=== PATIENT | female | born 1935 | race Caucasian/White ===

== ENCOUNTER 2018-03-19 09:47 | Emergency (ER) | payer MEDICARE, OTHER ==
[~2018-03-19] VITALS: Ht 157.5 cm; Wt 106.5 kg
[~2018-03-19 09:47] MED LIST: CHOL2000 PO; DULO60CA7 PO; GABA600T2 PO; GLIM1TAB2 PO; HYDR-3245 PO; HYDR25TA6 PO; IRBE300T16 PO; METF850T10 PO; METH500T97 PO; PANT40TA5 PO; iron PO
[2018-03-19 10:07] VITALS: BP 178/86
[2018-03-19] MEDS ORDERED: METO25TA35 PO (10:37)
[2018-03-19] MEDS ORDERED: LINA5TAB PO (10:43)
[2018-03-19] MEDS ORDERED: TIOT4MIS3 INH (10:43)
[2018-03-19] MEDS ORDERED: GABA800T2 PO (10:43)
[2018-03-19] MEDS ORDERED: DULO20CA45 PO (10:43)
[2018-03-19] MEDS ORDERED: PRAM0.125 PO (10:43)
== END 2018-03-19 11:05 | disposition home or self-care (01) ==
LOC: ED 10:50
DX: L01.01 Non-bullous impetigo (principal); L23.5 Allergic contact dermatitis due to other chemical products; I10 Essential (primary) hypertension; E11.9 Type 2 diabetes mellitus without complications
CPT/HCPCS: 99283

== ENCOUNTER 2020-04-12 14:56 | Inpatient (IN) | payer MEDICARE ==
[~2020-04-12] VITALS: Ht 160 cm; Wt 98.2 kg
[~2020-04-12 14:56] MED LIST changes: +DULO20CA45 PO; -GABA600T2 PO; +GABA600T7 PO; +GABA800T5 PO; -GLIM1TAB2 PO; +GLIM1TAB7 PO; -HYDR-3245 PO; +HYDR1TAB53 PO; -IRBE300T16 PO; +IRBE300T8 PO; +LINA5TAB PO; +METO25TA35 PO; -PANT40TA5 PO; +PANT40TA6 PO; +PRAM0.125 PO; +TIOT4MIS3 INH
[2020-04-12] MEDS ORDERED: SODIUM CHLORIDE FLUSH 10ML SYR IVF ONE (15:30)
[2020-04-12] MEDS ORDERED: ALBUTEROL SULFATE 2.5 MG/3 ML NPPB ONE (15:30)
[2020-04-12 16:10] LABS: BASOPHILS % (AUTO) 1 % (0-1); EOSINOPHILS % (AUTO) 3 % (1-7); LYMPHOCYTES % (AUTO) 13 % (22-44); MEAN CORPUSCULAR HEMOGLOBIN 28.4 pg (27.0-34.8); MEAN CORPUSCULAR HGB CONC 32.6 g/dL (32.4-35.8); MEAN PLATELET VOLUME 7.4 fL (7.4-10.4); MONOCYTES % (AUTO) 9 % (2-9); NEUTROPHILS % (AUTO) 75 % (42-75); PLATELET COUNT 294 x10^3/uL (130-400); RED BLOOD COUNT 4.34 x10^6/uL (3.82-5.3); RED CELL DISTRIBUTION WIDTH 14.9 % (9.6-15.2)
[2020-04-12 16:16] LABS: MD NO
[2020-04-12 16:18] LABS: ALANINE AMINOTRANSFERASE 18 U/L (12-78); ALBUMIN 3.1 g/dL (3.4-5.0); ANION GAP 8 mmol/L (5-15); CALCIUM 9.4 mg/dL (8.5-10.1); CHLORIDE 97 mmol/L (98-107); CREATININE 1.71 mg/dL (0.55-1.02)
[2020-04-12 16:22] LABS: ALKALINE PHOSPHATASE 81 U/L (45-117); BILIRUBIN,TOTAL 1.1 mg/dL (0.2-1.0); TROPONIN I < 0.015 ng/mL (0.000-0.045)
[2020-04-12] MEDS ORDERED: CEFTRIAXONE PMX 1GM/50ML 50 ML ONE (17:35)
[2020-04-12] MEDS ORDERED: MELATONIN 5 MG TABLET PO PRN (18:00)
[2020-04-12] MEDS ORDERED: HEPARIN 5,000 UNITS/ML, 1ML SQ SCH (18:00)
[2020-04-12] MEDS ORDERED: DEXAMETHASONE 4 MG/ML, 1ML IVPush ONE (18:00)
[2020-04-12] MEDS ORDERED: CEFTRIAXONE PMX 1GM/50ML 50 ML IVPB ONE (18:00)
[2020-04-12] MEDS ORDERED: AZITHROMYCIN 500 MG in SODIUM CHLORIDE 0.9% 250 ML IV SCH (18:00)
[2020-04-12] MEDS ORDERED: ONDANSETRON ODT 4 MG PO PRN (18:00)
[2020-04-12] MEDS ORDERED: TEMPLATE NON-FORMULARY MED. (Gabapentin** 800 MG) PO SCH (18:00)
[2020-04-12] MEDS ORDERED: CEFTRIAXONE PMX 1GM/50ML 50 ML IV SCH (18:00)
[2020-04-12] MEDS ORDERED: FUROSEMIDE 40 MG/4 ML IV ONE (18:00)
[2020-04-12] MEDS ORDERED: BISACODYL 10 MG SUPP PR PRN (18:00)
[2020-04-12] MEDS ORDERED: POLYETHYLENE GLYCOL 17 GM PACKET PO PRN (18:00)
[2020-04-12] MEDS ORDERED: DEXAMETHASONE 4 MG/ML, 5ML ONE (18:03)
[2020-04-12] MEDS ORDERED: HEPARIN 5,000 UNITS/ML, 1ML ONE ×2 (18:03→21:49)
[2020-04-12] MEDS ORDERED: FUROSEMIDE 20 MG/2 ML ONE (18:04)
[2020-04-12] MEDS ORDERED: ALBUTEROL SULFATE 2.5 MG/3 ML ONE (18:04)
[2020-04-12] MEDS ORDERED: AZITHROMYCIN 500 MG in SODIUM CHLORIDE 0.9% 250 ML IV ONE (18:30)
[2020-04-12 18:41] LABS: D-DIMER 5.86 ug/mlFEU (0.00-0.52); INTERNATIONAL NORMALIZED RATIO 1.03 (0.93-1.1); PROTHROMBIN TIME 10.9 Seconds (9.6-11.5)
--- NOTE | 2020-04-12 19:00 | NUR ---
SANDWICH AND CHIPS PROVIDED. NO OTHE NEEDS AT THIS TIME.
[2020-04-12] MEDS ORDERED: ASCORBIC ACID 500 MG TABLET ONE (19:58)
[2020-04-12] MEDS ORDERED: GABAPENTIN 400 MG CAPSULE ONE (19:59)
[2020-04-12] MEDS: ASCORBIC ACID 500 MG TABLET PO SCH (20:02)
--- NOTE | 2020-04-12 20:16 | NUR ---
PT SBA TO BSC. PT VOIDED AND HAD BM. PT BTB. PT VERY SOB WITH EXERTION. [id number] [phone]
[2020-04-12] MEDS: PRAMIPEXOLE 0.125MG TABLET PO SCH (20:17)
--- NOTE | 2020-04-12 20:47 | NUR ---
CONTACTED GI WALKER TO UPDATE. PT PULSE IN THE 120'S-130'S. 02 SAT 93% ON 4L. ELEVATED D-DIMER. ORDERS PLACED.
--- NOTE | 2020-04-12 20:55 | NUR ---
LEFT MESSAGE FOR GI WALKER. EKG NOW SHOWS AFIB 120'S. PT ASYMPTOMATIC.
[2020-04-12] MEDS ORDERED: DULOXETINE 20 MG CAPSULE.DR PO SCH (21:00)
[2020-04-12] MEDS ORDERED: DILTIAZEM 5 MG/ML, 5ML IV ONE (21:00)
[2020-04-12] MEDS ORDERED: DILTIAZEM 5 MG/ML, 5ML ONE ×2 (21:00→21:03)
[2020-04-12] MEDS ORDERED: HEPARIN 25,000 UNITS/250ML PMX 250 ML ONE (21:00)
--- NOTE | 2020-04-12 21:03 | NUR ---
[employer]: CALL RECEIVED FROM KIRAN WALKER ([facility]). NUC MED VQ SCAN ORDER CHANGED TO STAT AND RAD CALLED TO CALL TECH IN. DILT WAS ALREADY ORDERED BY DR. DAILY. Addendum: 04/12/20 at 2107 by MARCOS DILTIAZEM 10MG IVP ONCE VERBAL ORDER BY KIRAN WALKER(HAD ALREADY BEEN ORDERED AND GIVEN)
--- NOTE | 2020-04-12 21:03 | NUR ---
Radiology called and they state they will call Kameron the [place] tech in for us.
[2020-04-12] MEDS: DILTIAZEM 125 MG in SODIUM CHLORIDE 0.9% 100 ML IV SCH (21:06)
[2020-04-12] MEDS ORDERED: HEPARIN 5,000 UNITS/ML, 1ML IV PRN (21:30)
[2020-04-12] MEDS ORDERED: HEPARIN 5,000 UNITS/ML, 1ML IV ONE (21:30)
[2020-04-12] MEDS: HEPARIN 25,000 UNITS/250ML PMX 250 ML IV PRN (21:43)
--- NOTE | 2020-04-12 21:45 | NUR ---
PT STATES HER IV CAME OUT WHEN SHE TRIED TO ROLL OVER. IV ABX ZITHROMAX POOLED ON FLOOR NEXT TO BED. PT ASSISTED TO CHAIR AND LINENS CHANGED AND BED CLEANED. PT PLACED IN CLEAN GOWN AND ASSISTED TO WHEELCHAIR. PT TO CT WITH TECH AT THIS TIME FOR VQ SCAN.
--- NOTE | 2020-04-12 22:25 | NUR ---
LATE NOTE: THIS RN STARTED DILTIAZEM DRIP AT 2210 @ 10ML/HR. PREVIOUS RN DID NOT START DILTIAZEM DRIP.
[2020-04-12 22:40] VITALS: BP 128/75
[2020-04-12] MEDS: GABAPENTIN 400 MG CAPSULE PO SCH (22:58)
[2020-04-12] MEDS ORDERED: DULO30CA2 PO (23:22)
[2020-04-12] MEDS ORDERED: METO25TA2 PO (23:22)
[2020-04-12] MEDS ORDERED: ALBU2.5V NEB (23:22)
[2020-04-12] MEDS ORDERED: ERGO500018 PO (23:22)
[2020-04-12] MEDS ORDERED: DONE10TA7 PO (23:22)
[2020-04-12] MEDS ORDERED: AMLO-210 PO (23:22)
[2020-04-12] MEDS ORDERED: TORS10TA4 PO (23:22)
[2020-04-12] MEDS ORDERED: FERR-51 PO (23:22)
[2020-04-12] MEDS ORDERED: Allegra PO (23:40)
[2020-04-13] MEDS: DONEPEZIL 10 MG TABLET PO SCH ×2 (00:53→20:57)
[2020-04-13 02:07] VITALS: BP 105/62
[2020-04-13 05:38] LABS: BASOPHILS % (AUTO) 0 % (0-1); EOSINOPHILS % (AUTO) 0 % (1-7); LYMPHOCYTES % (AUTO) 10 % (22-44); MEAN CORPUSCULAR HEMOGLOBIN 28.8 pg (27.0-34.8); MEAN PLATELET VOLUME 7.4 fL (7.4-10.4); MONOCYTES % (AUTO) 1 % (2-9); NEUTROPHILS % (AUTO) 89 % (42-75); PLATELET COUNT 272 x10^3/uL (130-400); RED BLOOD COUNT 3.99 x10^6/uL (3.82-5.3); RED CELL DISTRIBUTION WIDTH 14.8 % (9.6-15.2)
[2020-04-13 05:46] LABS: ANION GAP 8 mmol/L (5-15); CALCIUM 8.9 mg/dL (8.5-10.1); CHLORIDE 99 mmol/L (98-107)
[2020-04-13 06:02] LABS: MD SCAN
[2020-04-13 07:18] VITALS: BP 120/75
[2020-04-13] MEDS: GABAPENTIN 400 MG CAPSULE PO SCH ×3 (08:20→20:58)
[2020-04-13] MEDS: SENNA/DOCUSATE TABLET PO SCH (08:20)
[2020-04-13] MEDS: PANTOPRAZOLE 40MG TABLET PO SCH (08:20)
[2020-04-13] MEDS: LINAGLIPTIN 5 MG TAB PO SCH (08:20)
[2020-04-13] MEDS: ASCORBIC ACID 500 MG TABLET PO SCH ×2 (08:20→20:58)
[2020-04-13] MEDS: CHOLECALCIFEROL 5,000u TAB PO SCH (08:20)
[2020-04-13] MEDS: DOXYCYCLINE 100MG TABLET PO SCH ×2 (08:20→20:58)
[2020-04-13] MEDS: CEFTRIAXONE PMX 2GM/50ML 50 ML IVPB SCH (08:21)
[2020-04-13] MEDS: DULOXETINE 30 MG CAPSULE.DR PO SCH (08:21)
[2020-04-13] MEDS: METOPROLOL SUCCINATE 25 MG TAB.ER.24H PO SCH (08:21)
[2020-04-13] MEDS ORDERED: IRBESARTAN 300 MG TABLET PO SCH (09:00)
[2020-04-13] MEDS ORDERED: DEXAMETHASONE 4 MG/ML, 1ML IVPush SCH (09:00)
[2020-04-13] MEDS ORDERED: METOPROLOL TARTRATE 25 MG TAB PO SCH (09:00)
[2020-04-13] MEDS ORDERED: AMLODIPINE 5 MG TABLET PO SCH (09:00)
[2020-04-13] MEDS ORDERED: REMDESIVIR 100 MG in SODIUM CHLORIDE 0.9% 250 ML IVPB ONE (11:00)
[2020-04-13] MEDS: ALBUTEROL HFA 90 MCG/SPRAY INH SCH ×4 (12:16→20:59)
[2020-04-13] MEDS: TIOTROPIUM BROMIDE 18 MCG/INH INH SCH (12:16)
[2020-04-13] MEDS: ZINC SULFATE 220 MG CAPSULE PO SCH (12:17)
[2020-04-13] MEDS: INSULIN LISPRO 100 UNITS/ML, PEN SQ-INSULIN SCH ×3 (12:25→20:57)
[2020-04-13] MEDS: DILTIAZEM 125 MG in SODIUM CHLORIDE 0.9% 100 ML IV SCH (12:39)
[2020-04-13 14:23] VITALS: BP 119/62
[2020-04-13 20:22] VITALS: BP 138/68
[2020-04-13] MEDS ORDERED: PRAMIPEXOLE 0.25MG TABLET ONE (20:53)
[2020-04-13] MEDS: HEPARIN 25,000 UNITS/250ML PMX 250 ML IV PRN (20:56)
[2020-04-13] MEDS: PRAMIPEXOLE 0.125MG TABLET PO SCH (20:57)
[2020-04-13] MEDS: GUAIFENESIN/DM 200-20MG, 10ML UDC PO PRN (20:58)
[2020-04-13] MEDS: DEXAMETHASONE 4 MG/ML, 1ML IVPush SCH (20:58)
[2020-04-14 00:20] VITALS: BP 127/71
[2020-04-14] MEDS: ALBUTEROL HFA 90 MCG/SPRAY INH SCH ×6 (00:32→21:32)
[2020-04-14 07:20] VITALS: BP 111/69
[2020-04-14 08:03] LABS: BASOPHILS % (AUTO) 0 % (0-1); EOSINOPHILS % (AUTO) 0 % (1-7); LYMPHOCYTES % (AUTO) 6 % (22-44); MEAN CORPUSCULAR HEMOGLOBIN 28.3 pg (27.0-34.8); MEAN CORPUSCULAR HGB CONC 32.3 g/dL (32.4-35.8); MEAN PLATELET VOLUME 7.2 fL (7.4-10.4); MONOCYTES % (AUTO) 2 % (2-9); NEUTROPHILS % (AUTO) 92 % (42-75); PLATELET COUNT 290 x10^3/uL (130-400); RED BLOOD COUNT 3.79 x10^6/uL (3.82-5.3); RED CELL DISTRIBUTION WIDTH 14.8 % (9.6-15.2)
[2020-04-14 08:10] LABS: MD NO
[2020-04-14 08:15] LABS: ALANINE AMINOTRANSFERASE 19 U/L (12-78); ALBUMIN 2.9 g/dL (3.4-5.0); ANION GAP 12 mmol/L (5-15); CALCIUM 8.8 mg/dL (8.5-10.1); CHLORIDE 100 mmol/L (98-107); CREATININE 2.07 mg/dL (0.55-1.02)
[2020-04-14 08:17] LABS: ALKALINE PHOSPHATASE 71 U/L (45-117); BILIRUBIN,TOTAL 0.4 mg/dL (0.2-1.0)
[2020-04-14] MEDS: CHOLECALCIFEROL 5,000u TAB PO SCH (08:19)
[2020-04-14] MEDS: ACETAMINOPHEN 325 MG TABLET PO PRN (08:19)
[2020-04-14] MEDS: DULOXETINE 30 MG CAPSULE.DR PO SCH (08:19)
[2020-04-14] MEDS: GABAPENTIN 400 MG CAPSULE PO SCH ×3 (08:19→21:32)
[2020-04-14] MEDS: ASCORBIC ACID 500 MG TABLET PO SCH ×2 (08:19→21:31)
[2020-04-14] MEDS: LINAGLIPTIN 5 MG TAB PO SCH (08:19)
[2020-04-14] MEDS: METOPROLOL SUCCINATE 25 MG TAB.ER.24H PO SCH (08:19)
[2020-04-14] MEDS: DOXYCYCLINE 100MG TABLET PO SCH ×2 (08:19→21:32)
[2020-04-14] MEDS: PANTOPRAZOLE 40MG TABLET PO SCH (08:19)
[2020-04-14] MEDS: TIOTROPIUM BROMIDE 18 MCG/INH INH SCH (08:20)
[2020-04-14] MEDS: DEXAMETHASONE 4 MG/ML, 1ML IVPush SCH ×2 (08:20→21:31)
[2020-04-14] MEDS: CEFTRIAXONE PMX 2GM/50ML 50 ML IVPB SCH (08:24)
[2020-04-14] MEDS: INSULIN LISPRO 100 UNITS/ML, PEN SQ-INSULIN SCH ×4 (08:24→21:30)
[2020-04-14] MEDS: SENNA/DOCUSATE TABLET PO SCH (08:24)
[2020-04-14] MEDS ORDERED: APIX2.5T PO (10:24)
[2020-04-14] MEDS: REMDESIVIR 50 MG in SODIUM CHLORIDE 0.9% 250 ML IVPB SCH (12:55)
[2020-04-14] MEDS: ZINC SULFATE 220 MG CAPSULE PO SCH (12:55)
[2020-04-14 14:11] LABS: CLOSTRIDIUM DIFFICILE ANTIGEN NEGATIVE; CLOSTRIDIUM DIFFICILE TOXIN NEGATIVE (Negative)
[2020-04-14 14:29] VITALS: BP 128/74
[2020-04-14] MEDS: LOPERAMIDE 2 MG CAPSULE PO SCH ×3 (15:19→22:28)
[2020-04-14 16:26] LABS: MICROSCOPIC INDICATED
[2020-04-14 20:19] VITALS: BP 135/73
[2020-04-14] MEDS ORDERED: INSULIN GLARGINE 100 UNITS/ML, PEN SQ-INSULIN SCH (21:00)
[2020-04-14] MEDS: INSULIN GLARGINE 100 UNITS/ML, PEN SQ-INSULIN SCH (21:31)
[2020-04-14] MEDS: APIXABAN 2.5 MG TABLET PO SCH (21:31)
[2020-04-14] MEDS: PRAMIPEXOLE 0.125MG TABLET PO SCH (21:32)
[2020-04-14] MEDS: DONEPEZIL 10 MG TABLET PO SCH (21:32)
[2020-04-15 00:55] VITALS: BP 145/78
[2020-04-15] MEDS: LOPERAMIDE 2 MG CAPSULE PO SCH ×6 (01:42→21:47)
[2020-04-15] MEDS: ALBUTEROL HFA 90 MCG/SPRAY INH SCH ×6 (01:42→20:25)
[2020-04-15 07:46] VITALS: BP 164/82
[2020-04-15 08:16] LABS: ALBUMIN 2.9 g/dL (3.4-5.0); ANION GAP 5 mmol/L (5-15); CALCIUM 8.5 mg/dL (8.5-10.1); CHLORIDE 103 mmol/L (98-107)
[2020-04-15 08:19] LABS: ALANINE AMINOTRANSFERASE 19 U/L (12-78); ALKALINE PHOSPHATASE 67 U/L (45-117); BILIRUBIN,TOTAL 0.4 mg/dL (0.2-1.0); CREATININE 2.04 mg/dL (0.55-1.02)
[2020-04-15] MEDS: CEFTRIAXONE PMX 2GM/50ML 50 ML IVPB SCH (08:55)
[2020-04-15] MEDS: DEXAMETHASONE 4 MG/ML, 1ML IVPush SCH ×2 (08:56→20:24)
[2020-04-15] MEDS: LINAGLIPTIN 5 MG TAB PO SCH (08:56)
[2020-04-15] MEDS: INSULIN LISPRO 100 UNITS/ML, PEN SQ-INSULIN SCH ×4 (08:56→20:23)
[2020-04-15] MEDS: GABAPENTIN 400 MG CAPSULE PO SCH ×3 (08:57→20:24)
[2020-04-15] MEDS: ASCORBIC ACID 500 MG TABLET PO SCH ×2 (08:57→20:24)
[2020-04-15] MEDS: APIXABAN 2.5 MG TABLET PO SCH ×2 (08:57→20:24)
[2020-04-15] MEDS: DOXYCYCLINE 100MG TABLET PO SCH ×2 (08:57→20:24)
[2020-04-15] MEDS: DULOXETINE 30 MG CAPSULE.DR PO SCH (08:58)
[2020-04-15] MEDS: PANTOPRAZOLE 40MG TABLET PO SCH (08:58)
[2020-04-15] MEDS: METOPROLOL SUCCINATE 25 MG TAB.ER.24H PO SCH (08:58)
[2020-04-15] MEDS: SENNA/DOCUSATE TABLET PO SCH (08:59)
[2020-04-15] MEDS: CHOLECALCIFEROL 5,000u TAB PO SCH (08:59)
[2020-04-15] MEDS: TIOTROPIUM BROMIDE 18 MCG/INH INH SCH (09:01)
[2020-04-15] MEDS ORDERED: FUROSEMIDE 40 MG/4 ML IV ONE (11:00)
[2020-04-15] MEDS ORDERED: POTASSIUM CHLORIDE 20 MEQ TAB.ER.PRT PO ONE (11:00)
[2020-04-15] MEDS: ZINC SULFATE 220 MG CAPSULE PO SCH (11:20)
[2020-04-15] MEDS: REMDESIVIR 50 MG in SODIUM CHLORIDE 0.9% 250 ML IVPB SCH (11:20)
[2020-04-15 13:59] VITALS: BP 102/67
[2020-04-15 19:14] VITALS: BP 125/81
[2020-04-15] MEDS: INSULIN GLARGINE 100 UNITS/ML, PEN SQ-INSULIN SCH (20:23)
[2020-04-15] MEDS: DONEPEZIL 10 MG TABLET PO SCH (20:24)
[2020-04-15] MEDS: PRAMIPEXOLE 0.125MG TABLET PO SCH (20:24)
[2020-04-16] MEDS: LOPERAMIDE 2 MG CAPSULE PO SCH ×6 (01:33→22:14)
[2020-04-16] MEDS: ALBUTEROL HFA 90 MCG/SPRAY INH SCH ×6 (01:33→21:20)
[2020-04-16 01:34] VITALS: BP 156/81
[2020-04-16 06:14] LABS: BASOPHILS % (AUTO) 0 % (0-1); EOSINOPHILS % (AUTO) 0 % (1-7); LYMPHOCYTES % (AUTO) 6 % (22-44); MEAN CORPUSCULAR HEMOGLOBIN 28.5 pg (27.0-34.8); MEAN CORPUSCULAR HGB CONC 32.2 g/dL (32.4-35.8); MONOCYTES % (AUTO) 3 % (2-9); NEUTROPHILS % (AUTO) 91 % (42-75); PLATELET COUNT 303 x10^3/uL (130-400); RED BLOOD COUNT 4.09 x10^6/uL (3.82-5.3); RED CELL DISTRIBUTION WIDTH 14.9 % (9.6-15.2)
[2020-04-16 06:23] LABS: CHLORIDE 101 mmol/L (98-107)
[2020-04-16 06:28] LABS: MD NO
[2020-04-16 06:32] LABS: ALANINE AMINOTRANSFERASE 21 U/L (12-78); ALBUMIN 3.1 g/dL (3.4-5.0); ALKALINE PHOSPHATASE 71 U/L (45-117); ANION GAP 6 mmol/L (5-15); BILIRUBIN,TOTAL 0.4 mg/dL (0.2-1.0); CALCIUM 8.6 mg/dL (8.5-10.1); CREATININE 2.06 mg/dL (0.55-1.02); TOTAL PROTEIN 7.3 g/dL (6.4-8.2)
[2020-04-16] MEDS: INSULIN LISPRO 100 UNITS/ML, PEN SQ-INSULIN SCH ×4 (07:00→21:18)
[2020-04-16] MEDS: DOXYCYCLINE 100MG TABLET PO SCH ×2 (07:52→21:08)
[2020-04-16] MEDS: APIXABAN 2.5 MG TABLET PO SCH ×2 (07:52→21:08)
[2020-04-16] MEDS: LINAGLIPTIN 5 MG TAB PO SCH (07:52)
[2020-04-16] MEDS: GABAPENTIN 400 MG CAPSULE PO SCH ×3 (07:52→21:08)
[2020-04-16] MEDS: DULOXETINE 30 MG CAPSULE.DR PO SCH (07:52)
[2020-04-16] MEDS: PANTOPRAZOLE 40MG TABLET PO SCH (07:52)
[2020-04-16] MEDS: ASCORBIC ACID 500 MG TABLET PO SCH ×2 (07:52→21:08)
[2020-04-16] MEDS: CHOLECALCIFEROL 5,000u TAB PO SCH (07:52)
[2020-04-16] MEDS: METOPROLOL SUCCINATE 25 MG TAB.ER.24H PO SCH (07:53)
[2020-04-16 08:06] VITALS: BP 106/73
[2020-04-16] MEDS: CEFTRIAXONE PMX 2GM/50ML 50 ML IVPB SCH ×2 (08:07→09:39)
[2020-04-16] MEDS: TIOTROPIUM BROMIDE 18 MCG/INH INH SCH (08:18)
[2020-04-16] MEDS ORDERED: POTASSIUM CHLORIDE 20 MEQ TAB.ER.PRT PO ONE (09:30)
[2020-04-16] MEDS ORDERED: FUROSEMIDE 40 MG/4 ML IV ONE (09:30)
[2020-04-16] MEDS: DEXAMETHASONE 4 MG/ML, 1ML IVPush SCH ×2 (09:39→21:09)
[2020-04-16] MEDS: ZINC SULFATE 220 MG CAPSULE PO SCH (11:19)
[2020-04-16] MEDS: METOPROLOL TARTRATE 50 MG TAB PO SCH ×2 (14:21→22:13)
[2020-04-16 14:25] VITALS: BP 145/82
[2020-04-16] MEDS: REMDESIVIR 50 MG in SODIUM CHLORIDE 0.9% 250 ML IVPB SCH (18:02)
[2020-04-16 19:42] VITALS: BP 138/75
[2020-04-16] MEDS: PRAMIPEXOLE 0.125MG TABLET PO SCH (21:08)
[2020-04-16] MEDS: DONEPEZIL 10 MG TABLET PO SCH (21:09)
[2020-04-16] MEDS: INSULIN GLARGINE 100 UNITS/ML, PEN SQ-INSULIN SCH (21:19)
[2020-04-17 00:49] VITALS: BP 144/85
[2020-04-17] MEDS: ALBUTEROL HFA 90 MCG/SPRAY INH SCH ×6 (01:38→21:12)
[2020-04-17] MEDS: LOPERAMIDE 2 MG CAPSULE PO SCH ×6 (01:38→21:09)
[2020-04-17 05:20] VITALS: BP 148/83
[2020-04-17] MEDS: METOPROLOL TARTRATE 50 MG TAB PO SCH ×3 (05:23→21:10)
[2020-04-17 06:08] LABS: ALBUMIN 2.9 g/dL (3.4-5.0); ANION GAP 6 mmol/L (5-15); CALCIUM 8.4 mg/dL (8.5-10.1); CHLORIDE 102 mmol/L (98-107)
[2020-04-17 06:16] LABS: ALANINE AMINOTRANSFERASE 20 U/L (12-78); ALKALINE PHOSPHATASE 62 U/L (45-117); BILIRUBIN,TOTAL 0.4 mg/dL (0.2-1.0); CREATININE 2.06 mg/dL (0.55-1.02); TOTAL PROTEIN 6.7 g/dL (6.4-8.2)
[2020-04-17 06:41] VITALS: BP 86/60
[2020-04-17 07:56] VITALS: BP 155/83
[2020-04-17] MEDS: INSULIN LISPRO 100 UNITS/ML, PEN SQ-INSULIN SCH ×4 (08:01→21:11)
[2020-04-17] MEDS: TIOTROPIUM BROMIDE 18 MCG/INH INH SCH (09:28)
[2020-04-17] MEDS: ASCORBIC ACID 500 MG TABLET PO SCH ×2 (09:29→21:10)
[2020-04-17] MEDS: DOXYCYCLINE 100MG TABLET PO SCH ×2 (09:29→21:09)
[2020-04-17] MEDS: LINAGLIPTIN 5 MG TAB PO SCH (09:29)
[2020-04-17] MEDS: DEXAMETHASONE 4 MG/ML, 1ML IVPush SCH (09:29)
[2020-04-17] MEDS: PANTOPRAZOLE 40MG TABLET PO SCH (09:30)
[2020-04-17] MEDS: CEFTRIAXONE PMX 2GM/50ML 50 ML IVPB SCH (09:30)
[2020-04-17] MEDS: DULOXETINE 30 MG CAPSULE.DR PO SCH (09:30)
[2020-04-17] MEDS: APIXABAN 2.5 MG TABLET PO SCH ×2 (09:30→21:10)
[2020-04-17] MEDS: CHOLECALCIFEROL 5,000u TAB PO SCH (09:30)
[2020-04-17] MEDS: GABAPENTIN 400 MG CAPSULE PO SCH ×3 (09:30→21:10)
[2020-04-17] MEDS ORDERED: FUROSEMIDE 40 MG/4 ML IV ONE (11:30)
[2020-04-17] MEDS: ZINC SULFATE 220 MG CAPSULE PO SCH (11:35)
[2020-04-17 12:05] VITALS: BP 146/83
[2020-04-17] MEDS: REMDESIVIR 50 MG in SODIUM CHLORIDE 0.9% 250 ML IVPB SCH (17:24)
[2020-04-17 19:53] VITALS: BP 164/80
[2020-04-17] MEDS ORDERED: INSULIN GLARGINE 100 UNITS/ML, PEN SQ-INSULIN SCH (21:00)
[2020-04-17] MEDS: DONEPEZIL 10 MG TABLET PO SCH (21:10)
[2020-04-17] MEDS: PRAMIPEXOLE 0.125MG TABLET PO SCH (21:10)
[2020-04-18 01:04] VITALS: BP 150/70
[2020-04-18] MEDS: LOPERAMIDE 2 MG CAPSULE PO SCH ×6 (01:04→20:17)
[2020-04-18] MEDS: ALBUTEROL HFA 90 MCG/SPRAY INH SCH ×6 (01:04→20:19)
[2020-04-18] MEDS: METOPROLOL TARTRATE 50 MG TAB PO SCH ×2 (05:20→20:18)
[2020-04-18 05:42] LABS: ANION GAP 6 mmol/L (5-15); CALCIUM 8.7 mg/dL (8.5-10.1); CHLORIDE 104 mmol/L (98-107)
[2020-04-18 05:43] LABS: CREATININE 2.12 mg/dL (0.55-1.02)
[2020-04-18] MEDS: INSULIN LISPRO 100 UNITS/ML, PEN SQ-INSULIN SCH ×4 (07:20→22:22)
[2020-04-18 08:00] VITALS: BP 127/78
[2020-04-18] MEDS: DOXYCYCLINE 100MG TABLET PO SCH ×2 (10:45→20:18)
[2020-04-18] MEDS: LINAGLIPTIN 5 MG TAB PO SCH (10:45)
[2020-04-18] MEDS: DEXAMETHASONE 4 MG/ML, 1ML IVPush SCH (10:45)
[2020-04-18] MEDS: APIXABAN 2.5 MG TABLET PO SCH ×2 (10:46→20:18)
[2020-04-18] MEDS: TIOTROPIUM BROMIDE 18 MCG/INH INH SCH (10:46)
[2020-04-18] MEDS: DULOXETINE 30 MG CAPSULE.DR PO SCH (10:46)
[2020-04-18] MEDS: GABAPENTIN 400 MG CAPSULE PO SCH ×3 (10:46→20:17)
[2020-04-18] MEDS: AMLODIPINE 5 MG TABLET PO SCH (10:46)
[2020-04-18] MEDS: CEFTRIAXONE PMX 2GM/50ML 50 ML IVPB SCH (10:46)
[2020-04-18] MEDS: PANTOPRAZOLE 40MG TABLET PO SCH (10:46)
[2020-04-18] MEDS: CHOLECALCIFEROL 5,000u TAB PO SCH (10:46)
[2020-04-18] MEDS: ASCORBIC ACID 500 MG TABLET PO SCH ×2 (10:46→20:17)
[2020-04-18 11:48] VITALS: BP 146/78
[2020-04-18 12:56] LABS: BASOPHILS % (AUTO) 0 % (0-1); EOSINOPHILS % (AUTO) 5 % (1-7); LYMPHOCYTES % (AUTO) 7 % (22-44); MEAN CORPUSCULAR HEMOGLOBIN 28.6 pg (27.0-34.8); MEAN CORPUSCULAR HGB CONC 32.2 g/dL (32.4-35.8); MEAN PLATELET VOLUME 7.2 fL (7.4-10.4); MONOCYTES % (AUTO) 8 % (2-9); NEUTROPHILS % (AUTO) 81 % (42-75); PLATELET COUNT 294 x10^3/uL (130-400); RED BLOOD COUNT 4.02 x10^6/uL (3.82-5.3); RED CELL DISTRIBUTION WIDTH 15.2 % (9.6-15.2)
[2020-04-18 13:57] LABS: MD SCAN
[2020-04-18] MEDS: ZINC SULFATE 220 MG CAPSULE PO SCH (14:16)
[2020-04-18 19:21] VITALS: BP 140/72
[2020-04-18] MEDS: DONEPEZIL 10 MG TABLET PO SCH (20:17)
[2020-04-18] MEDS: PRAMIPEXOLE 0.125MG TABLET PO SCH (20:18)
[2020-04-19] MEDS: ALBUTEROL HFA 90 MCG/SPRAY INH SCH ×6 (01:07→21:21)
[2020-04-19] MEDS: LOPERAMIDE 2 MG CAPSULE PO SCH ×6 (01:07→21:15)
[2020-04-19 02:05] VITALS: BP 111/73
[2020-04-19 06:04] LABS: BASOPHILS % (AUTO) 0 % (0-1); EOSINOPHILS % (AUTO) 1 % (1-7); LYMPHOCYTES % (AUTO) 12 % (22-44); MEAN CORPUSCULAR HEMOGLOBIN 28.1 pg (27.0-34.8); MEAN CORPUSCULAR HGB CONC 31.8 g/dL (32.4-35.8); MEAN PLATELET VOLUME 7.6 fL (7.4-10.4); MONOCYTES % (AUTO) 8 % (2-9); NEUTROPHILS % (AUTO) 80 % (42-75); PLATELET COUNT 288 x10^3/uL (130-400); RED CELL DISTRIBUTION WIDTH 15.3 % (9.6-15.2)
[2020-04-19 06:06] LABS: MD NO
[2020-04-19 06:14] LABS: ANION GAP 10 mmol/L (5-15); CALCIUM 8.7 mg/dL (8.5-10.1); CHLORIDE 101 mmol/L (98-107)
[2020-04-19 06:15] LABS: CREATININE 2.43 mg/dL (0.55-1.02)
[2020-04-19 07:20] VITALS: BP 110/61
[2020-04-19] MEDS: CEFTRIAXONE PMX 2GM/50ML 50 ML IVPB SCH (07:55)
[2020-04-19] MEDS: DEXAMETHASONE 4 MG/ML, 1ML IVPush SCH (07:55)
[2020-04-19] MEDS: TIOTROPIUM BROMIDE 18 MCG/INH INH SCH (07:56)
[2020-04-19] MEDS: INSULIN LISPRO 100 UNITS/ML, PEN SQ-INSULIN SCH ×4 (07:56→21:28)
[2020-04-19] MEDS: CHOLECALCIFEROL 5,000u TAB PO SCH (07:57)
[2020-04-19] MEDS: METOPROLOL TARTRATE 50 MG TAB PO SCH ×2 (07:57→21:16)
[2020-04-19] MEDS: PANTOPRAZOLE 40MG TABLET PO SCH (07:57)
[2020-04-19] MEDS: AMLODIPINE 5 MG TABLET PO SCH (07:57)
[2020-04-19] MEDS: DOXYCYCLINE 100MG TABLET PO SCH ×2 (07:57→21:16)
[2020-04-19] MEDS: APIXABAN 2.5 MG TABLET PO SCH ×2 (07:57→21:16)
[2020-04-19] MEDS: LINAGLIPTIN 5 MG TAB PO SCH (07:57)
[2020-04-19] MEDS: DULOXETINE 30 MG CAPSULE.DR PO SCH (07:57)
[2020-04-19] MEDS: ASCORBIC ACID 500 MG TABLET PO SCH ×2 (07:57→21:16)
[2020-04-19] MEDS: GABAPENTIN 400 MG CAPSULE PO SCH ×3 (07:57→21:15)
[2020-04-19 11:58] VITALS: BP 117/71
[2020-04-19] MEDS: ZINC SULFATE 220 MG CAPSULE PO SCH (12:01)
[2020-04-19] MEDS ORDERED: FUROSEMIDE 20 MG/2 ML IV SCH (17:30)
[2020-04-19 20:24] VITALS: BP 147/83
[2020-04-19] MEDS: DONEPEZIL 10 MG TABLET PO SCH (21:16)
[2020-04-19] MEDS: PRAMIPEXOLE 0.125MG TABLET PO SCH (21:16)
[2020-04-20 00:03] VITALS: BP 113/68
[2020-04-20 01:42] VITALS: BP_SYST 103; BP_SYST 120; BP_DIAS 71; BP_DIAS 74
[2020-04-20] MEDS: ALBUTEROL HFA 90 MCG/SPRAY INH SCH ×6 (01:42→22:17)
[2020-04-20] MEDS: LOPERAMIDE 2 MG CAPSULE PO SCH ×6 (01:52→22:03)
[2020-04-20 05:40] LABS: BASOPHILS % (AUTO) 0 % (0-1); EOSINOPHILS % (AUTO) 0 % (1-7); LYMPHOCYTES % (AUTO) 14 % (22-44); MEAN CORPUSCULAR HEMOGLOBIN 28.8 pg (27.0-34.8); MEAN CORPUSCULAR HGB CONC 32.5 g/dL (32.4-35.8); MEAN PLATELET VOLUME 8.1 fL (7.4-10.4); MONOCYTES % (AUTO) 8 % (2-9); NEUTROPHILS % (AUTO) 78 % (42-75); PLATELET COUNT 256 x10^3/uL (130-400); RED BLOOD COUNT 3.94 x10^6/uL (3.82-5.3); RED CELL DISTRIBUTION WIDTH 15.5 % (9.6-15.2)
[2020-04-20 05:50] LABS: ANION GAP 14 mmol/L (5-15); CALCIUM 8.4 mg/dL (8.5-10.1); CHLORIDE 100 mmol/L (98-107)
[2020-04-20 05:53] LABS: CREATININE 3.24 mg/dL (0.55-1.02)
[2020-04-20 06:21] LABS: MD NO
[2020-04-20] MEDS: INSULIN LISPRO 100 UNITS/ML, PEN SQ-INSULIN SCH ×4 (07:00→22:04)
[2020-04-20 07:58] VITALS: BP 107/69
[2020-04-20] MEDS: CEFTRIAXONE PMX 2GM/50ML 50 ML IVPB SCH (08:11)
[2020-04-20] MEDS: DEXAMETHASONE 4 MG/ML, 1ML IVPush SCH (08:12)
[2020-04-20] MEDS: ASCORBIC ACID 500 MG TABLET PO SCH ×2 (08:12→22:15)
[2020-04-20] MEDS: APIXABAN 2.5 MG TABLET PO SCH ×2 (08:12→22:15)
[2020-04-20] MEDS: PANTOPRAZOLE 40MG TABLET PO SCH (08:12)
[2020-04-20] MEDS: DULOXETINE 30 MG CAPSULE.DR PO SCH (08:13)
[2020-04-20] MEDS: CHOLECALCIFEROL 5,000u TAB PO SCH (08:13)
[2020-04-20] MEDS: AMLODIPINE 5 MG TABLET PO SCH (08:13)
[2020-04-20] MEDS: GABAPENTIN 400 MG CAPSULE PO SCH (08:13)
[2020-04-20] MEDS: LINAGLIPTIN 5 MG TAB PO SCH (08:13)
[2020-04-20] MEDS: DOXYCYCLINE 100MG TABLET PO SCH ×2 (08:13→22:17)
[2020-04-20] MEDS: METOPROLOL TARTRATE 50 MG TAB PO SCH ×2 (08:13→22:14)
[2020-04-20] MEDS: SODIUM CHLORIDE 0.9% 1,000 ML IV SCH ×2 (09:48→22:37)
[2020-04-20] MEDS: TIOTROPIUM BROMIDE 18 MCG/INH INH SCH (09:48)
[2020-04-20 10:33] LABS: MICROSCOPIC NOT IND
[2020-04-20 10:38] LABS: ABSOLUTE RETICS # 0.094 x10^6/uL (0.5-2.5); RED BLOOD COUNT 4.03 x10^6/uL (3.82-5.3); RETICULOCYTE COUNT % 2.34 % (0.5-1.5)
[2020-04-20 10:42] LABS: POTASSIUM,URINE RANDOM 48 mmol/L; SODIUM,URINE RANDOM 16 mmol/L
[2020-04-20 10:46] LABS: CHLORIDE,URINE RANDOM < 10 mmol/L
[2020-04-20 10:46] LABS: CALCIUM 8.4 mg/dL (8.5-10.1)
[2020-04-20 10:52] LABS: RAPID INFLUENZA A Negative (Negative); RAPID INFLUENZA B Negative (Negative)
[2020-04-20] MEDS: ZINC SULFATE 220 MG CAPSULE PO SCH (12:26)
[2020-04-20 14:00] VITALS: BP 104/67
[2020-04-20] MEDS: GUAIFENESIN/DM 200-20MG, 10ML UDC PO PRN ×2 (15:38→22:13)
[2020-04-20 17:01] LABS: OCCULT BLOOD NEGATIVE (NEGATIVE)
[2020-04-20 19:59] VITALS: BP 118/77
[2020-04-20] MEDS: PRAMIPEXOLE 0.125MG TABLET PO SCH (22:15)
[2020-04-20] MEDS: DONEPEZIL 10 MG TABLET PO SCH (22:15)
[2020-04-20] MEDS: ACETAMINOPHEN 325 MG TABLET PO PRN (22:15)
[2020-04-21 00:43] VITALS: BP 137/75
[2020-04-21] MEDS: LOPERAMIDE 2 MG CAPSULE PO SCH ×3 (01:16→07:32)
[2020-04-21] MEDS: ALBUTEROL HFA 90 MCG/SPRAY INH SCH ×5 (03:12→20:40)
[2020-04-21 06:28] LABS: BASOPHILS % (AUTO) 0 % (0-1); EOSINOPHILS % (AUTO) 0 % (1-7); LYMPHOCYTES % (AUTO) 8 % (22-44); MEAN CORPUSCULAR HEMOGLOBIN 28.3 pg (27.0-34.8); MEAN CORPUSCULAR HGB CONC 32.1 g/dL (32.4-35.8); MEAN PLATELET VOLUME 8.6 fL (7.4-10.4); MONOCYTES % (AUTO) 8 % (2-9); NEUTROPHILS % (AUTO) 84 % (42-75); PLATELET COUNT 229 x10^3/uL (130-400); RED BLOOD COUNT 3.98 x10^6/uL (3.82-5.3); RED CELL DISTRIBUTION WIDTH 15.6 % (9.6-15.2)
[2020-04-21 06:32] LABS: MD NO
[2020-04-21 06:38] LABS: ALANINE AMINOTRANSFERASE 372 U/L (12-78); ALBUMIN 2.9 g/dL (3.4-5.0); ANION GAP 19 mmol/L (5-15); CALCIUM 8.1 mg/dL (8.5-10.1); CHLORIDE 100 mmol/L (98-107); CREATININE 3.79 mg/dL (0.55-1.02)
[2020-04-21 06:40] LABS: ALKALINE PHOSPHATASE 80 U/L (45-117); BILIRUBIN,TOTAL 0.7 mg/dL (0.2-1.0); TOTAL PROTEIN 6.6 g/dL (6.4-8.2)
[2020-04-21] MEDS: INSULIN LISPRO 100 UNITS/ML, PEN SQ-INSULIN SCH ×4 (07:00→20:40)
[2020-04-21] MEDS: TIOTROPIUM BROMIDE 18 MCG/INH INH SCH (08:44)
[2020-04-21 09:00] VITALS: BP 122/66
[2020-04-21] MEDS: CEFTRIAXONE PMX 2GM/50ML 50 ML IVPB SCH (09:20)
[2020-04-21] MEDS: DEXAMETHASONE 4 MG/ML, 1ML IVPush SCH (09:20)
[2020-04-21] MEDS: LINAGLIPTIN 5 MG TAB PO SCH (09:20)
[2020-04-21] MEDS: DOXYCYCLINE 100MG TABLET PO SCH ×2 (09:20→20:40)
[2020-04-21] MEDS: CHOLECALCIFEROL 5,000u TAB PO SCH (09:20)
[2020-04-21] MEDS: ASCORBIC ACID 500 MG TABLET PO SCH ×2 (09:21→20:40)
[2020-04-21] MEDS: METOPROLOL TARTRATE 50 MG TAB PO SCH ×2 (09:21→20:40)
[2020-04-21] MEDS: AMLODIPINE 5 MG TABLET PO SCH (09:21)
[2020-04-21] MEDS: DULOXETINE 30 MG CAPSULE.DR PO SCH (09:21)
[2020-04-21] MEDS: APIXABAN 2.5 MG TABLET PO SCH (09:21)
[2020-04-21] MEDS: PANTOPRAZOLE 40MG TABLET PO SCH (09:24)
[2020-04-21] MEDS ORDERED: SODIUM CHLORIDE 0.9%, 500ML IVBOLUS ONE (11:00)
[2020-04-21] MEDS: ZINC SULFATE 220 MG CAPSULE PO SCH (11:03)
[2020-04-21 13:02] VITALS: BP 115/75
[2020-04-21] MEDS ORDERED: LIDOCAINE 1%, 10ML ONE (14:41)
[2020-04-21] MEDS: ALBUMIN HUMAN 25% 50 ML IV SCH (16:53)
[2020-04-21 20:25] VITALS: BP 136/72
[2020-04-21] MEDS: DONEPEZIL 10 MG TABLET PO SCH (20:40)
[2020-04-21] MEDS: PRAMIPEXOLE 0.125MG TABLET PO SCH (20:40)
[2020-04-22 00:39] VITALS: BP 140/80
[2020-04-22] MEDS: SODIUM CHLORIDE 0.9% 1,000 ML IV SCH ×3 (00:45→16:10)
[2020-04-22] MEDS: ALBUTEROL HFA 90 MCG/SPRAY INH SCH ×6 (00:48→22:23)
[2020-04-22] MEDS: ALBUMIN HUMAN 25% 50 ML IV SCH ×3 (00:50→18:02)
[2020-04-22] MEDS: INSULIN LISPRO 100 UNITS/ML, PEN SQ-INSULIN SCH ×4 (07:00→22:19)
[2020-04-22 07:47] VITALS: BP 109/76
[2020-04-22] MEDS: METOPROLOL TARTRATE 50 MG TAB PO SCH (08:08)
[2020-04-22] MEDS: CHOLECALCIFEROL 5,000u TAB PO SCH (09:00)
[2020-04-22] MEDS: DULOXETINE 30 MG CAPSULE.DR PO SCH (09:00)
[2020-04-22] MEDS: AMLODIPINE 5 MG TABLET PO SCH (09:00)
[2020-04-22] MEDS: PANTOPRAZOLE 40MG TABLET PO SCH (09:00)
[2020-04-22] MEDS: LINAGLIPTIN 5 MG TAB PO SCH (09:00)
[2020-04-22] MEDS: ASCORBIC ACID 500 MG TABLET PO SCH (09:00)
[2020-04-22] MEDS ORDERED: CEFTRIAXONE PMX 1GM/50ML 50 ML IV SCH (10:00)
[2020-04-22] MEDS ORDERED: DOXYCYCLINE 100 MG in DEXTROSE 5% 250 ML IV SCH (10:00)
[2020-04-22 10:10] LABS: ALANINE AMINOTRANSFERASE 684 U/L (12-78); ALBUMIN 3.4 g/dL (3.4-5.0); ANION GAP 17 mmol/L (5-15); CALCIUM 7.9 mg/dL (8.5-10.1); CHLORIDE 105 mmol/L (98-107); CREATININE 4.18 mg/dL (0.55-1.02)
[2020-04-22 10:12] LABS: BILIRUBIN,TOTAL 1.1 mg/dL (0.2-1.0); TOTAL PROTEIN 6.5 g/dL (6.4-8.2)
[2020-04-22 10:22] LABS: MEAN CORPUSCULAR HGB CONC 31.5 g/dL (32.4-35.8); MEAN PLATELET VOLUME 8.5 fL (7.4-10.4); PLATELET COUNT 212 x10^3/uL (130-400); RED BLOOD COUNT 3.95 x10^6/uL (3.82-5.3); RED CELL DISTRIBUTION WIDTH 15.7 % (9.6-15.2)
[2020-04-22 10:23] LABS: ALKALINE PHOSPHATASE 73 U/L (45-117)
[2020-04-22] MEDS: DEXAMETHASONE 4 MG/ML, 1ML IVPush SCH (10:30)
[2020-04-22 10:38] LABS: MD YES
[2020-04-22 10:39] LABS: LYMPHS% (MANUAL) 9 % (22-44); MONOS#(MANUAL) 1.25 x10^3/uL (0.3-2.7); MONOS% (MANUAL) 7 % (2-9); SEG#(MANUAL) 14.95 x10^3/uL (1.8-6.8); SEGS% (MANUAL) 84 % (42-75)
[2020-04-22 10:40] LABS: ANISOCYTOSIS 1+; POLYCHROMASIA 1+
[2020-04-22 10:41] LABS: <PLATELET ESTIMATE> ADEQUATE; <PLT MORPHOLOGY> NORMAL PLT MORPH
[2020-04-22] MEDS: TIOTROPIUM BROMIDE 18 MCG/INH INH SCH (11:17)
[2020-04-22] MEDS: ZINC SULFATE 220 MG CAPSULE PO SCH (12:44)
[2020-04-22 13:02] LABS: MICROSCOPIC INDICATED
[2020-04-22 13:04] LABS: POTASSIUM,URINE RANDOM 45 mmol/L; SODIUM,URINE RANDOM 7 mmol/L
[2020-04-22 13:06] LABS: CHLORIDE,URINE RANDOM < 10 mmol/L
[2020-04-22] MEDS: DONEPEZIL 10 MG TABLET PO SCH (22:23)
[2020-04-22] MEDS: PRAMIPEXOLE 0.125MG TABLET PO SCH (22:23)
[2020-04-22] MEDS: METOPROLOL TARTRATE 25 MG TAB PO SCH (22:23)
[2020-04-23] MEDS: SODIUM CHLORIDE 0.9% 1,000 ML IV SCH ×2 (00:06→06:17)
[2020-04-23] MEDS: ALBUTEROL HFA 90 MCG/SPRAY INH SCH ×6 (00:52→20:37)
[2020-04-23] MEDS: ALBUMIN HUMAN 25% 50 ML IV SCH ×3 (01:13→16:57)
[2020-04-23 04:25] LABS: MEAN CORPUSCULAR HEMOGLOBIN 28.5 pg (27.0-34.8); MEAN CORPUSCULAR HGB CONC 32.3 g/dL (32.4-35.8); MEAN PLATELET VOLUME 8.3 fL (7.4-10.4); PLATELET COUNT 140 x10^3/uL (130-400); RED CELL DISTRIBUTION WIDTH 15.5 % (9.6-15.2)
[2020-04-23 04:35] LABS: ALANINE AMINOTRANSFERASE 742 U/L (12-78); ALBUMIN 3.6 g/dL (3.4-5.0); ANION GAP 11 mmol/L (5-15); CALCIUM 7.5 mg/dL (8.5-10.1); CHLORIDE 103 mmol/L (98-107); CREATININE 3.43 mg/dL (0.55-1.02)
[2020-04-23 05:02] LABS: ALKALINE PHOSPHATASE 69 U/L (45-117); BILIRUBIN,TOTAL 1.6 mg/dL (0.2-1.0); TOTAL PROTEIN 6.2 g/dL (6.4-8.2)
[2020-04-23 05:11] LABS: MD YES
[2020-04-23 05:15] LABS: BAND#(MANUAL) 0.44 x10^3/uL; BANDS%(MANUAL) 3 % (0-7); LYMPH#(MANUAL) 0.59 x10^3/uL (1-3.4); LYMPHS% (MANUAL) 4 % (22-44); MONOS% (MANUAL) 2 % (2-9); MYELOCYTES# (MANUAL) 0.15 x10^3/uL (0-0); MYELOCYTES% (MANUAL) 1 % (0-0); SEG#(MANUAL) 13.32 x10^3/uL (1.8-6.8); SEGS% (MANUAL) 90 % (42-75)
[2020-04-23 05:16] LABS: ANISOCYTOSIS 1+; ECHINOCYTES 1+; POLYCHROMASIA 1+
[2020-04-23 05:17] LABS: <PLATELET ESTIMATE> ADEQUATE; <PLT MORPHOLOGY> NORMAL PLT MORPH
[2020-04-23] MEDS ORDERED: HEPARIN 5,000 UNITS/ML, 1ML IV ONE (09:00)
[2020-04-23] MEDS: DULOXETINE 30 MG CAPSULE.DR PO SCH (09:00)
[2020-04-23] MEDS: PANTOPRAZOLE 40MG TABLET PO SCH (09:00)
[2020-04-23] MEDS: METOPROLOL TARTRATE 25 MG TAB PO SCH ×2 (09:00→20:37)
[2020-04-23] MEDS: LINAGLIPTIN 5 MG TAB PO SCH (09:00)
[2020-04-23] MEDS ORDERED: HEPARIN 5,000 UNITS/ML, 1ML IV PRN (09:00)
[2020-04-23] MEDS ORDERED: HEPARIN 25,000 UNITS/250ML PMX 250 ML IV PRN (09:00)
[2020-04-23] MEDS: INSULIN LISPRO 100 UNITS/ML, PEN SQ-INSULIN SCH ×4 (10:02→20:41)
[2020-04-23] MEDS ORDERED: PANTOPRAZOLE 40 MG IV ONE (10:30)
[2020-04-23] MEDS ORDERED: PANTOPRAZOLE 40 MG IV IVPush SCH (12:00)
[2020-04-23] MEDS: TIOTROPIUM BROMIDE 18 MCG/INH INH SCH (13:41)
[2020-04-23] MEDS: PRAMIPEXOLE 0.125MG TABLET PO SCH (20:37)
[2020-04-23] MEDS: DONEPEZIL 10 MG TABLET PO SCH (20:37)
[2020-04-24] MEDS: ALBUTEROL HFA 90 MCG/SPRAY INH SCH ×6 (01:00→20:42)
[2020-04-24] MEDS: ALBUMIN HUMAN 25% 50 ML IV SCH (02:57)
[2020-04-24 04:57] LABS: MEAN CORPUSCULAR HEMOGLOBIN 29.2 pg (27.0-34.8); MEAN CORPUSCULAR HGB CONC 32.9 g/dL (32.4-35.8); MEAN PLATELET VOLUME 9.1 fL (7.4-10.4); PLATELET COUNT 109 x10^3/uL (130-400); RED BLOOD COUNT 3.35 x10^6/uL (3.82-5.3)
[2020-04-24 05:03] LABS: ALBUMIN 4.2 g/dL (3.4-5.0); ANION GAP 16 mmol/L (5-15); CALCIUM 8.3 mg/dL (8.5-10.1); CHLORIDE 101 mmol/L (98-107); CREATININE 3.33 mg/dL (0.55-1.02)
[2020-04-24 05:16] LABS: ALANINE AMINOTRANSFERASE 1211 U/L (12-78); ALKALINE PHOSPHATASE 71 U/L (45-117); BILIRUBIN,TOTAL 2.7 mg/dL (0.2-1.0); TOTAL PROTEIN 6.4 g/dL (6.4-8.2)
[2020-04-24 06:08] LABS: MD YES
[2020-04-24 06:12] LABS: LYMPH#(MANUAL) 1.65 x10^3/uL (1-3.4); LYMPHS% (MANUAL) 7 % (22-44); METAMYELOCYTES# (MANUAL) 0.47 x10^3/uL (0-0); METAMYELOCYTES% (MANUAL) 2 % (0-1); MONOS#(MANUAL) 1.18 x10^3/uL (0.3-2.7); MONOS% (MANUAL) 5 % (2-9); MYELOCYTES# (MANUAL) 0.47 x10^3/uL (0-0); MYELOCYTES% (MANUAL) 2 % (0-0); SEG#(MANUAL) 19.82 x10^3/uL (1.8-6.8); SEGS% (MANUAL) 84 % (42-75)
[2020-04-24 06:13] LABS: ANISOCYTOSIS 1+; POLYCHROMASIA 1+
[2020-04-24 06:14] LABS: <PLATELET ESTIMATE> DECREASED; <PLT MORPHOLOGY> NORMAL PLT MORPH; PAPPENHEIMER BODIES 1+
[2020-04-24] MEDS ORDERED: VANCOMYCIN 2,000 MG in SODIUM CHLORIDE 0.9% 500 ML IV ONE (07:00)
[2020-04-24] MEDS ORDERED: PHARMACOKINETIC MONITORING MC PRN (07:00)
[2020-04-24] MEDS ORDERED: PHARMACOKINETIC CONSULTATION MC ONE (07:00)
[2020-04-24] MEDS ORDERED: VANCOMYCIN PER PHARMACY MC PRN (07:00)
[2020-04-24] MEDS: INSULIN LISPRO 100 UNITS/ML, PEN SQ-INSULIN SCH ×4 (07:44→20:46)
[2020-04-24] MEDS: PIPERACILLIN/TAZO/PMX 2.25GM 50 ML IVPB SCH ×3 (07:44→20:03)
[2020-04-24] MEDS: PANTOPRAZOLE 40MG TABLET PO SCH (08:00)
[2020-04-24] MEDS: TIOTROPIUM BROMIDE 18 MCG/INH INH SCH (08:18)
[2020-04-24] MEDS: DULOXETINE 30 MG CAPSULE.DR PO SCH (08:34)
[2020-04-24] MEDS: METOPROLOL TARTRATE 25 MG TAB PO SCH ×2 (08:34→20:42)
[2020-04-24] MEDS: LINAGLIPTIN 5 MG TAB PO SCH (08:34)
[2020-04-24] MEDS ORDERED: SODIUM CHLORIDE 0.9% 1,000 ML IV SCH (09:30)
[2020-04-24] MEDS: DONEPEZIL 10 MG TABLET PO SCH (20:42)
[2020-04-24] MEDS: PRAMIPEXOLE 0.125MG TABLET PO SCH (20:42)
[2020-04-25] MEDS: PIPERACILLIN/TAZO/PMX 2.25GM 50 ML IVPB SCH ×3 (01:24→13:05)
[2020-04-25] MEDS: ALBUTEROL HFA 90 MCG/SPRAY INH SCH ×4 (01:24→13:08)
[2020-04-25 05:29] LABS: MEAN CORPUSCULAR HEMOGLOBIN 28.5 pg (27.0-34.8); MEAN CORPUSCULAR HGB CONC 32.2 g/dL (32.4-35.8); MEAN PLATELET VOLUME 9.6 fL (7.4-10.4); PLATELET COUNT 81 x10^3/uL (130-400); RED BLOOD COUNT 3.37 x10^6/uL (3.82-5.3); RED CELL DISTRIBUTION WIDTH 15.8 % (9.6-15.2)
[2020-04-25 05:30] LABS: ALBUMIN 3.5 g/dL (3.4-5.0); ANION GAP 12 mmol/L (5-15); CHLORIDE 102 mmol/L (98-107)
[2020-04-25] MEDS: PANTOPRAZOLE 40MG TABLET PO SCH (05:42)
[2020-04-25 05:43] LABS: ALANINE AMINOTRANSFERASE 1433 U/L (12-78); ALKALINE PHOSPHATASE 119 U/L (45-117); BILIRUBIN,TOTAL 5.7 mg/dL (0.2-1.0); CALCIUM 8.7 mg/dL (8.5-10.1); CREATININE 3.06 mg/dL (0.55-1.02); TOTAL PROTEIN 5.8 g/dL (6.4-8.2)
[2020-04-25 06:08] LABS: MD YES
[2020-04-25 06:10] LABS: ANISOCYTOSIS 1+; BAND#(MANUAL) 0.64 x10^3/uL; BANDS%(MANUAL) 2 % (0-7); EOS#(MANUAL) 0.64 x10^3/uL (0.0-0.4); EOS% (MANUAL) 2 % (1-7); LYMPH#(MANUAL) 1.28 x10^3/uL (1-3.4); LYMPHS% (MANUAL) 4 % (22-44); MONOS#(MANUAL) 1.91 x10^3/uL (0.3-2.7); MONOS% (MANUAL) 6 % (2-9); POLYCHROMASIA 1+; SEG#(MANUAL) 27.43 x10^3/uL (1.8-6.8); SEGS% (MANUAL) 86 % (42-75)
[2020-04-25 06:11] LABS: <PLATELET ESTIMATE> DECREASED; <PLT MORPHOLOGY> NORMAL PLT MORPH
[2020-04-25] MEDS ORDERED: VANCOMYCIN 1,900 MG in SODIUM CHLORIDE 0.9% 250 ML IV ONE (06:30)
[2020-04-25] MEDS: INSULIN LISPRO 100 UNITS/ML, PEN SQ-INSULIN SCH ×2 (07:00→11:00)
[2020-04-25] MEDS: METOPROLOL TARTRATE 25 MG TAB PO SCH (08:30)
[2020-04-25] MEDS: DULOXETINE 30 MG CAPSULE.DR PO SCH (08:30)
[2020-04-25] MEDS: TIOTROPIUM BROMIDE 18 MCG/INH INH SCH (08:30)
[2020-04-25] MEDS ORDERED: HYDROmorphone 2 MG/ML, 1ML IVPush PRN (09:00)
[2020-04-25 10:22] LABS: D-DIMER (DIC) 9.76 ug/mlFEU (0.00-0.52); PROTIME 25.7 Seconds (9.6-11.5)
[2020-04-25] MEDS ORDERED: FLUCONAZOLE 400 MG/200 ML 200 ML IV SCH (13:00)
[2020-04-25] MEDS ORDERED: NOREPINEPHRINE 8 MG in SODIUM CHLORIDE 0.9% 242 ML IV PRN (13:00)
[2020-04-25] MEDS ORDERED: MORPHINE SULFATE 4 MG/ML, 1ML IVPush PRN (15:30)
[2020-04-25] MEDS ORDERED: LORazepam 2 MG/ML, 1ML IVPush PRN (15:30)
[2020-04-25] MEDS ORDERED: ONDANSETRON 2MG/ML, 2ML IVPush PRN (15:30)
[2020-04-25] MEDS ORDERED: SCOPOLAMINE 1MG PATCH TD PRN (15:30)
== END 2020-04-25 19:38 | disposition expired | DRG 871 ==
LOC: ED 15:27 → EDIP 17:18 → 4EST 22:31 → CCU 04-22 10:52
PROVIDERS: ADMIT Internal Medicine; ATTEND Hospitalist
PROC: XW033E5 Introduction of Remdesivir Anti-infective into Peripheral Vein, Percutaneous Approach, New Technology Group 5 (ICD-10-PCS; 2020-04-13)
PROC: 0W993ZZ Drainage of Right Pleural Cavity, Percutaneous Approach (ICD-10-PCS; 2020-04-21)
PROC: 0T9B30Z Drainage of Bladder with Drainage Device, Percutaneous Approach (ICD-10-PCS; principal; 2020-04-22)
PROC: 02HV33Z Insertion of Infusion Device into Superior Vena Cava, Percutaneous Approach (ICD-10-PCS; 2020-04-22)
PROC: B548ZZA Ultrasonography of Superior Vena Cava, Guidance (ICD-10-PCS; 2020-04-22)
PROC: 5A1D70Z Performance of Urinary Filtration, Intermittent, Less than 6 Hours Per Day (ICD-10-PCS; 2020-04-22)
PROC: 5A1D70Z Performance of Urinary Filtration, Intermittent, Less than 6 Hours Per Day (ICD-10-PCS; 2020-04-23)
DX: A41.9 Sepsis, unspecified organism (principal); J15.9 Unspecified bacterial pneumonia; N17.0 Acute kidney failure with tubular necrosis; J96.21 Acute and chronic respiratory failure with hypoxia; I50.33 Acute on chronic diastolic (congestive) heart failure; G93.41 Metabolic encephalopathy; D65 Disseminated intravascular coagulation [defibrination syndrome]; U07.1 COVID-19; B17.9 Acute viral hepatitis, unspecified; J44.1 Chronic obstructive pulmonary disease with (acute) exacerbation; J44.0 Chronic obstructive pulmonary disease with (acute) lower respiratory infection; I48.20 Chronic atrial fibrillation, unspecified; I30.9 Acute pericarditis, unspecified; I13.0 Hypertensive heart and chronic kidney disease with heart failure and stage 1 through stage 4 chronic kidney disease, or unspecified chronic kidney disease; E87.2 Acidosis; E46 Unspecified protein-calorie malnutrition; Z51.5 Encounter for palliative care; N18.30 Chronic kidney disease, stage 3 unspecified; M19.90 Unspecified osteoarthritis, unspecified site; K80.20 Calculus of gallbladder without cholecystitis without obstruction; I48.0 Paroxysmal atrial fibrillation; G20 Parkinson's disease; F02.80 Dementia in other diseases classified elsewhere, unspecified severity, without behavioral disturbance, psychotic disturbance, mood disturbance, and anxiety; E86.9 Volume depletion, unspecified; E11.42 Type 2 diabetes mellitus with diabetic polyneuropathy; E11.22 Type 2 diabetes mellitus with diabetic chronic kidney disease; E21.3 Hyperparathyroidism, unspecified; D72.823 Leukemoid reaction; Z99.2 Dependence on renal dialysis; Z87.891 Personal history of nicotine dependence; Z79.84 Long term (current) use of oral hypoglycemic drugs; Z79.899 Other long term (current) drug therapy; Z68.38 Body mass index [BMI] 38.0-38.9, adult
CPT/HCPCS: 32555; 36415; 36556; 36600; 70450; 71045; 71250; 74018; 76700; 76770; 76937; 77001; 78580; 80048; 80053; 80202; 81001; 81003; 82042; 82140; 82272; 82306; 82310; 82330; 82436; 82550; 82607; 82728; 82803; 82962; 83540; 83550; 83605; 83615; 83690; 83735; 83880; 83970; 84100; 84133; 84145; 84157; 84300; 84443; 84484; 84550; 85025; 85045; 85049; 85379; 85384; 85520; 85610; 85730; 86022; 86140; 86705; 86706; 87040; 87070; 87081; 87086; 87205; 87324; 87340; 87400; 88112; 88305; 89051; 90935; 93005; 93306; 93308; 93321; 93325; 96374; 96375; 99285; C1894; G0378; J0456; J0696; J1100; J1170; J1450; J1644; J1940; J2543; J3370; J7060; J7613; P9047; A9540; C1751; C1769; C9113; J1642; J1815; J2060; J2270; J7030; J7040; J7050; U0003